=== PATIENT | male | born 1995 | race Caucasian/White ===

== ENCOUNTER 2018-04-23 19:04 | Emergency (ER) | payer OTHER, BC | END 2018-04-23 20:35 | disposition home or self-care (01) | LOC: M ED 19:04 | DX: S02.2XXA Fracture of nasal bones, initial encounter for closed fracture (principal); W55.89XA Other contact with other mammals, initial encounter; Y92.9 Unspecified place or not applicable; Y93.9 Activity, unspecified; Y99.9 Unspecified external cause status | CPT/HCPCS: 70486 ==

== ENCOUNTER → 2023-02-18 | Outpatient (CLI) | payer OTHER | LOC: M SLEEP 20:00 | PROVIDERS: ATTEND Nurse Practitioner Adult Health | DX: G47.30 Sleep apnea, unspecified (principal) ==